=== PATIENT | female | born 1935 | race Caucasian/White ===

== ENCOUNTER 2024-02-07 08:24 | Emergency (ER) | payer MEDICARE, SELFPAY ==
[2024-02-07] VITALS (14 sets, daily range): BP systolic 100–197; BP diastolic 40–173; PULSE 68–77; RESP 15–23; TEMP 36.6–36.7; O2SAT 96–100; BMI 24.2
--- NOTE | 2024-02-07 08:54 | CT_ITS ---
FINAL REPORT TECHNIQUE: Axial images were performed through the brain.This study was performed with techniques to keep radiation doses as low as reasonably achievable, (ALARA). Individualized dose reduction techniques using automated exposure control or adjustment of mA and/or kV according to the patient''s size were employed. CLINICAL HISTORY: enceophalopathy FINDINGS: There is mild atrophy with advanced chronic microvascular ischemic change. There is no extra-axial fluid or midline shift. There is no evidence of acute hemorrhage or mass. IMPRESSION: Atrophy and chronic microvascular ischemic change. No acute intracranial process. Reviewed, Interpreted and Dictated by Lon Medina MD Transcribed by Rocio Cerna Authenticated and [facility]
--- NOTE | 2024-02-07 08:58 | ED_ITS ---
Discharge Plan Disposition Chief Complaint: Altered Mental Status Referrals Follow up/Referrals: Provider,Referral, [Primary Care Provider] - See instructions Clinical Impressions Clinical Impression: Acute respiratory failure with hypoxia and hypercarbia, Dependence on renal dialysis Instructions Patient Instructions: DI for Altered Mental Status Discharge ED Provider: Yo Lutz General Adult HPI General Chief complaint: Altered Mental Status Stated complaint: weakness Time Seen by Provider: 02/07/24 08:36 Mode of Arrival: EMS Source of Information: Patient Limitations: No Limitations Description of Symptoms (Recalled from ER Triage Doc. by RN): pt presents to ED via EMS for AMS, difficulty ambulating. pt unable to answer questions approriately. EMS reports pt had dialysis yesterday and had difficulty ambulating to and from dialysis. pt looks at you when speaking to her, but she does not talk. History of Present Illness HPI narrative: Patient is a 88-year-old female with past medical history of hypertension, insulin-dependent diabetes, dialysis dependent state Sunday who presents emergency department for evaluation of encephalopathy and pneumonia. History is obtained by daughter at bedside. Patient has been diagnosed with pneumonia over the last few days and has been prescribed cefuroxime, azithromycin, prednisone. She gets pneumonia yearly and usually becomes encephalopathic. She was on oxygen last year however had not required any oxygen for the last 6 months. Today when daughter attempted to get her out of bed to help take care of her patient was listless, minimally responsive with environment however is arousable to loud verbal stimuli. At baseline patient is conversational, ambulatory with a walker and this is an acute functional decline from that state. No trauma. No other acute complaints at this time. Patient is requiring 3 L nasal cannula upon arrival. Related Data Allergies Allergy/AdvReac Type Severity Reaction Status Date / Time No Known Allergies Allergy Verified 02/07/24 09:22 [facility] Disclaimer: The information contained in this section may have been updated after the patient was seen, as this information can be updated by other users. Social History Smoking Status: Never smoker alcohol intake: never current occupational status: other Travel in the last 8 weeks: None ROS Obtained: Yes unobtainable due to mental status Physical Exam General General appearance: alert and in no apparent distress Head Head exam: atraumatic and normocephalic Eye Eye exam: Present PERRL and EOMI ENT ENT exam: Present mucous membranes moist Neck Neck exam: Present normal inspection Chest Chest inspection: Present normal inspection and symmetric chest wall rise Respiratory Respiratory exam: Present other (Coarse breath sounds in all lung walls, diminished air entry in all lung walls) Cardiovascular Cardiovascular exam: Present regular rate, normal rhythm and other (Capillary refill less than 2 seconds bilateral upper extremities) Abdominal Exam Abdominal exam: Present soft; Absent tenderness Extremities Exam Extremities exam: Present normal inspection and other (No pitting edema) Neurological Exam Neurological exam: Present other (Rousable to verbal stimuli, does not follow commands. Intermittently spontaneously moving extremities) Skin Skin exam: Present warm and dry Medical Decision Making Arun Inquiry Pt receiving controlled substance: No Vital Signs: 02/07/24 08:25 02/07/24 09:00 02/07/24 10:00 Temperature 98.1 F Temperature Source Oral Pulse Rate 72 71 Pulse Rate [Left Radial] 73 Respiratory Rate 15 Blood Pressure 135/49 L 165/62 H Blood Pressure [Right Arm] 139/51 L Blood Pressure Mean Blood Pressure Mean [Right Arm] 80 02 Sat by Pulse Oximetry 96 96 100 Oxygen Delivery Method Nasal Cannula Nasal Cannula Nasal Cannula Oxygen Flow Rate (LPM) 3 3 02/07/24 10:31 02/07/24 11:01 02/07/24 11:30 Temperature Temperature Source Pulse Rate 77 70 74 Pulse Rate [Left Radial] Respiratory Rate Blood Pressure 197/173 H 129/43 L 126/47 L Blood Pressure [Right Arm] Blood Pressure Mean 178 71 73 Blood Pressure Mean [Right Arm] 02 Sat by Pulse Oximetry 100 100 100 Oxygen Delivery Method BiPAP BiPAP Oxygen Flow Rate (LPM) 02/07/24 12:08 02/07/24 12:30 02/07/24 13:00 Temperature Temperature Source Pulse Rate 71 68 71 Pulse Rate [Left Radial] Respiratory Rate Blood Pressure 151/45 H 157/52 H 150/134 H Blood Pressure [Right Arm] Blood Pressure Mean 137 Blood Pressure Mean [Right Arm] 02 Sat by Pulse Oximetry 98 99 99 Oxygen Delivery Method BiPAP Oxygen Flow Rate (LPM) Lab Data Lab Results 02/07/24 09:01: Chlamy pneumoniae PCR Not detected, Adenovirus (PCR) Not detected, B. pertussis DNA (PCR) Not detected, Coronavirus OC43 (PCR) Not detected, Coronavirus HKU1 (PCR) Not detected, Coronavirus 229E (PCR) Not detected, SARS-CoV-2 (PCR) Not detected, Coronavirus NL63 (PCR) Not detected, Human Metapneumovir PCR Not detected, Influenza A (H1) PCR Not detected, Influ A (H1N1/09) PCR Not detected, Influenza A (H3) PCR Not detected, Influenza Type A (PCR) Not detected, Influenza Type B (PCR) Not detected, M. pneumoniae (PCR) Not detected, Parainfluenza 1 (PCR) Not detected, Parainfluenza 2 (PCR) Not detected, Parainfluenza 3 (PCR) Not detected, Parainfluenza 4 (PCR) Not detected, RSV (PCR) Not detected, Entero/Rhino (PCR) Not detected 02/07/24 09:18: WBC 10.0, RBC 4.16 L, Hgb 12.3, Hct 43.7, MCV 105.0 H, MCH 29.7, MCHC 28.3 L, RDW 16.9, Plt Count 198, MPV 8.8, Neut % (Auto) 80.4 H, Lymph % (Auto) 10.9, Jewell % (Auto) 6.9, Eos % (Auto) 0.7, Baso % (Auto) 1.1, Neut # (Auto) 8.1 H, Lymph # (Auto) 1.1, Jewell # (Auto) 0.7, Eos # (Auto) 0.1, Baso # (Auto) 0.1, Sodium 141, Potassium 4.2, Chloride 103, Carbon Dioxide 34 H, Anion Gap 8.2, BUN 27 H, Creatinine 4.50 H, Estimated Creat Clear 9, Estimated GFR 9 L*, Est GFR ( Amer) 11 L*, Glucose 114 H, Calcium 8.1 L, Total Bilirubin 0.5, AST 27, ALT 32, Alkaline Phosphatase 70, Ammonia 11, Troponin I 0.12 H, Total Protein 6.7, Albumin 3.8, Globulin 2.9, Albumin/Globulin Ratio 1.3 02/07/24 09:22: VBG pH 7.06 L, VBG pCO2 89.9 H, VBG pO2 73.9 H, VBG HCO3 24.8, V BG Total CO2 27.5 H, VBG O2 Saturation 93.2 H, VBG Base Excess -5.6 L, VBG Lactic Acid 0.7 02/07/24 12:43: Troponin I 0.12 H 02/07/24 12:49: VBG pH 7.11 L, VBG pCO2 76.2 H, VBG pO2 36.9, VBG HCO3 23.8, VBG Total CO2 26.1, VBG O2 Saturation 69.2, VBG Base Excess -5.7 L, VBG Lactic Acid 0.9 02/07/24 09:18 02/07/24 09:18 Orders (Tests/Meds): ED MEDICATIONS Discontinued Medications Generic Name Dose Route Start Last Admin Trade Name Freq PRN Reason Stop Dose Admin Albuterol/Ipratropium 9 ml 02/07/24 08:59 02/07/24 09:30 Ipratropium/Albuterol 3 Ml Neb IH 02/07/24 09:00 9 ml ONCE ONE Administration Lactated Ringer's 500 mls @ 999 mls/hr 02/07/24 08:56 02/07/24 09:44 Lactated Ringer's 500ml IV 02/07/24 09:26 999 mls/hr .Q31M ONE Administration Ceftriaxone Sodium 1 gm/ 50 mls @ 100 mls/hr 02/07/24 08:56 02/07/24 09:59 Sodium Chloride IV 02/07/24 09:25 100 mls/hr ONCE ONE Administration Azithromycin 500 mg/ Sodium 250 mls @ 250 mls/hr 02/07/24 08:56 02/07/24 10:40 Chloride IV 02/07/24 08:57 250 mls/hr ONCE ONE Administration Methylprednisolone Sodium Succinate 125 mg 02/07/24 08:59 02/07/24 09:44 Methylprednisolone Sod Succ 125mg Vial IV 02/07/24 09:00 125 mg ONCE ONE Administration ORDERS Category Date Time Status CT chest wo con Stat Cat Scan 02/07/24 09:[address] head/brain wo con Stat Cat Scan 02/07/24 08:54 Completed CXR --portable [XR chest portable] Stat Exams 02/07/24 09:11 Completed Ammonia Stat Lab 02/07/24 09:18 Completed CBC w/Auto Diff [Complete Blood Count Auto Diff] Stat Lab 02/07/24 09:18 Completed CMP [Comprehensive Metabolic Panel] Stat Lab 02/07/24 09:18 Completed Full Resp Panel w/COVID ([facility]) Routine Lab 02/07/24 09:01 Completed Trop I [Troponin I] Stat Lab 02/07/24 09:18 Completed Troponin I Q3H Lab 02/07/24 12:43 Completed Troponin I Q3H Lab 02/07/24 15:00 Ordered Blood Culture Stat Micro 02/07/24 09:22 Received VBG [Venous Blood Gas] Stat RT 02/07/24 09:22 Completed Venous Blood Gas Routine RT 02/07/24 12:49 Completed ECG Data Tracing #1: Independently interpreted by me, rate is 71, rhythm is regular, ventricular paced, no excessive discordant ST changes. QTc 463. Medical Decision Narrative: In summary patient is a 88-year-old female with past medical history described above presents emergency department for evaluation of encephalopathy and pneumonia in the dialysis dependent state. Patient is hemodynamically stable upon arrival, encephalopathic. Differential diagnosis includes encephalopathy secondary to pneumonia, intracranial hemorrhage, critical electrolyte abnormality, acidosis, among others. Workup will be conducted with hematologic labs, CT chest pulmonary embolism protocol, CT head without contrast, EKG, troponin. Initial interventions include ceftriaxone, azithromycin, DuoNebs x 3, methylprednisolone. Initial workup reviewed by me, severe hypercarbic acidosis for which patient will be placed on high-level BiPAP. Chest x-ray informally interpreted by me, multifocal pneumonia. Initial troponin elevated in the setting of CKD, creatinine 4.5 with unknown baseline however no critical electrolyte abnormalities. Aggressive volume resuscitation will be deferred given dialysis dependent state and appearing euvolemic on exam. CT imaging reviewed by me, atelectasis and pleural effusions with cardiomegaly, no evidence of overt pneumonia. The case was discussed with [facility] Dr. Beckettqi he graciously excepted patient for transfer for continued evaluation at this time. Repeat VBG will be conducted to assess response to BiPAP. Repeat VBG shows resolving hypercarbic acidosis for which BiPAP settings will be continued. Critical Care Critical Care Time Critical Care Time: No
--- NOTE | 2024-02-07 09:06 | ECG_ITS ---
APPROVED REPORT Exam: Resting ECG HR:71 bpm ECG Measurements Heart Rate 71 AXES TN 174 P 84 QRSd 169 QRS 177 QT 440 T -26 QTc 463 Conclusion ELECTRONIC [employer]ENTRICULAR PACEM[employer]ER Electronically signed by : GAYLE POOL, 02/08/2024 06:09:20
[2024-02-07 09:11] LABS: Adenovirus,PCR Not Detected (NotDetected); Bordetella Pertussis Not Detected (NotDetected); Chlamydophila Pneumoniae, PCR Not Detected (NotDetected); Coronavirus 19, PCR Not Detected (NotDetected); Coronavirus 229E Not Detected (NotDetected); Coronavirus NL63 Not Detected (NotDetected); Coronavirus OC43 Not Detected (NotDetected); Coronovirus HKU1,PCR Not Detected (NotDetected); Human Metapneumovirus Not Detected (NotDetected); Influenza A, PCR Not Detected (NotDetected); Influenza AH1, 2009 Not Detected (NotDetected); Influenza AH1, PCR Not Detected (NotDetected); Influenza AH3,PCR Not Detected (NotDetected); Influenza B, PCR Not Detected (NotDetected); Mycoplasma Pneumoniae, PCR Not Detected (NotDetected); Parainfluenza 1, PCR Not Detected (NotDetected); Parainfluenza 2, PCR Not Detected (NotDetected); Parainfluenza 3, PCR Not Detected (NotDetected); Parainfluenza 4, PCR Not Detected (NotDetected); Respiratory Syncytial Virus Not Detected (NotDetected); Rhinovirus/Enterovirus Not Detected (NotDetected)
--- NOTE | 2024-02-07 09:11 | XR_ITS ---
FINAL REPORT CLINICAL HISTORY: sob FINDINGS: SINGLE-VIEW CHEST The heart size is normal. The mediastinum is normal. There is increased marking in the lung bases, left greater than right favored to be atelectasis. There is mild cardiomegaly. There is no pneumothorax. IMPRESSION: Mild cardiomegaly. Reviewed, Interpreted and Dictated by Lon Medina MD Transcribed by Rocio Cerna Authenticated and [facility]
[2024-02-07 09:26] LABS: Lactate Venous 0.7 mmol/L (0.4-2.0); VBG Base Excess -5.6 mmol/L (-2.4-2.3); VBG HCO3 24.8 mmol/L (23-30); VBG Oxygen Saturation 93.2 % (50-70); VBG PO2 73.9 mmol/L (28-40); VBG Total CO2 27.5 mmol/L (23-27)
[2024-02-07 09:29] LABS: VBG PCO2 89.9 mmol/L (35-51); VBG PH 7.06 mmol/L (7.31-7.41)
[2024-02-07] MEDS: IPRATROPIUM/ALBUTEROL 3 ML NEB 9 ML IH (09:30)
[2024-02-07 09:31] LABS: Chloride 103 mmol/L (98-107); Potassium 4.2 mmoL/L (3.5-5.1); Sodium 141 mmol/L (136-145)
[2024-02-07 09:32] LABS: Basophils # 0.1 K/mm3 (0-0.2); Basophils % 1.1 % (0.1-2.0); Eosinophils # 0.1 K/mm3 (0.0-0.4); Eosinophils % 0.7 % (0.1-12.0); Hematocrit 43.7 % (37.0-47.0); Hemoglobin 12.3 g/dL (12.2-16.2); Lymphocytes # 1.1 K/mm3 (0.7-4.5); Lymphocytes % 10.9 % (10-50); Mean Corpuscular HGB Conc 28.3 g/dL (31.8-35.4); Mean Corpuscular Hemoglobin 29.7 pg (27.0-31.2); Mean Platelet Volume 8.8 fl (7.4-10.4); Monocytes # 0.7 K/mm3 (0.1-1.0); Monocytes % 6.9 % (1.7-9.3); Neutrophils # 8.1 K/mm3 (1.8-7.8); Neutrophils % 80.4 % (37.0-80.0); Platelet Count 198 K/mm3 (142-424); Red Blood Count 4.16 M/mm3 (4.20-5.40); Red Cell Distribution Width 16.9 % (11.5-17.5)
[2024-02-07 09:34] LABS: Alanine Aminotransferase 32 U/L (12-78); Albumin Level 3.8 g/dl (3.5-5.0); Albumin/Globulin Ratio 1.3 (1.1-1.8); Alkaline Phosphatase 70 U/L (38-126); Anion Gap 8.2 mEq/L (5-15); Aspartate Amino Transferase 27 U/L (14-36); Bilirubin,Total 0.5 mg/dl (0.2-1.3); Blood Urea Nitrogen 27 mg/dl (7-17); Calcium 8.1 mg/dl (8.4-10.2); Carbon Dioxide 34 mmol/L (22.0-30.0); Creatinine Clearance Estimated 9 mL/min (50-200); Estimated Glomerular Filt Rate 9 ml/min (>60); GFR (African American) 11 ML/MIN (>60); Globulin 2.9 g/dL (1.3-3.2); Glucose 114 mg/dl (74-100); Total Protein,Serum 6.7 g/dl (6.3-8.2)
[2024-02-07 09:35] LABS: Ammonia 11 umol/L (9-30)
--- NOTE | 2024-02-07 09:37 | PC.NURSE ---
aware of creatinine of 4.5.
[2024-02-07] MEDS: METHYLPREDNISOLONE SOD SUCC 125MG VIAL 125 MG IV (09:44)
[2024-02-07] MEDS: RINGERS SOLUTION,LACTATED 500 ML 999 ML IV (09:44)
[2024-02-07 09:46] LABS: Troponin I 0.12 ng/ml (0.00-0.034)
--- NOTE | 2024-02-07 09:52 | CT_ITS ---
FINAL REPORT TECHNIQUE: Axial CT without IV contrast administration. This study was performed with techniques to keep radiation doses as low as reasonably achievable (ALARA). Individualized dose reduction techniques using automated exposure control or adjustment of mA and/or kV according to the patient's size were employed. CLINICAL HISTORY: hypercarbic resp failure, pneumonia FINDINGS: There is bibasilar atelectasis, left greater than right. No definite pneumonia is identified. There are small right and tiny left pleural effusions. There is cardiomegaly, particularly of the left ventricle. No adenopathy or mass lesion is present. IMPRESSION: Atelectasis and pleural effusions. Cardiomegaly, particularly of the left ventricle. Reviewed, Interpreted and Dictated by Lon Medina MD Transcribed by Rocio Cerna Authenticated and [facility]
[2024-02-07] MEDS: CEFTRIAXONE 1 GM 1 GM in 0.9 % SODIUM CHLORIDE 50 ML IV (09:59)
[2024-02-07] MEDS: AZITHROMYCIN 500 MG in 0.9 % SODIUM CHLORIDE 250 ML 250 MG IV (10:40)
--- NOTE | 2024-02-07 11:01 | PC.NURSE ---
PT IS SLEEPING COMFORTABLY WITH BIPAP ON, FAMILY AT BS CALL LIGHT IN REACH
--- NOTE | 2024-02-07 11:46 | PC.NURSE ---
Called [facility] to see about getting this pt transferred. [facility] advised they would make contact and would call us back
--- NOTE | 2024-02-07 12:01 | PC.NURSE ---
[facility] will call back with a bed, no beds available at this time. Dr. Alfaro accepting for respiratory failure.
[2024-02-07 12:57] LABS: VBG Base Excess -5.7 mmol/L (-2.4-2.3); VBG HCO3 23.8 mmol/L (23-30); VBG Oxygen Saturation 69.2 % (50-70); VBG PCO2 76.2 mmol/L (35-51); VBG PH 7.11 mmol/L (7.31-7.41); VBG PO2 36.9 mmol/L (28-40); VBG Total CO2 26.1 mmol/L (23-27)
[2024-02-07 12:58] LABS: Lactate Venous 0.9 mmol/L (0.4-2.0)
--- NOTE | 2024-02-07 13:02 | PC.NURSE ---
VBG results reported to Jaycee BOONE
[2024-02-07 13:12] LABS: Troponin I 0.12 ng/ml (0.00-0.034)
--- NOTE | 2024-02-07 14:41 | PC.NURSE ---
Updated pt and family on status of [facility] still awaiting bed assignment
--- NOTE | 2024-02-07 15:14 | PC.NURSE ---
report called to [facility] called for transportation
== END 2024-02-07 15:46 | disposition short-term general hospital (02) ==
PROVIDERS: Emergency Provider Emergency Medicine
DX: J96.01 Acute respiratory failure with hypoxia (principal); J96.02 Acute respiratory failure with hypercapnia; J90 Pleural effusion, not elsewhere classified; J98.11 Atelectasis; E11.22 Type 2 diabetes mellitus with diabetic chronic kidney disease; I12.9 Hypertensive chronic kidney disease with stage 1 through stage 4 chronic kidney disease, or unspecified chronic kidney disease; Z99.2 Dependence on renal dialysis; Z79.4 Long term (current) use of insulin; N18.9 Chronic kidney disease, unspecified
CPT/HCPCS: 36415; 70450; 71045; 71250; 80053; 82140; 82803; 84484; 85025; 87040; 87581; 87632; 87635; 87798; 93005; 96365; 96375; 99285; J0456; J0696